=== PATIENT | female | born 1990 | race American Indian/Alaskan Native ===

== ENCOUNTER 2018-03-28 11:28 | Emergency (ER) | payer MEDICAID ==
[2018-03-28 12:44] LABS: Bilirubin,Urine NEG (Negative); Blood,Urine SM (Negative); Color,Urine Yellow (Yellow); Mucus,Urine FEW /HPF; Protein,Urine <15 mg/dL mg/dL (Negative); Urobilinogen,Urine < 2.0 mg/dL (<2.0)
[2018-03-28 12:45] LABS: HCG Qualitative,Urine Negative (Negative)
[2018-03-28] MEDS ORDERED: PEPCID IV ONE (13:29)
[2018-03-28] MEDS ORDERED: MORPHINE IV ONE (13:29)
[2018-03-28] MEDS ORDERED: ZOFRAN IV ONE (13:29)
--- NOTE | 2018-03-28 13:32 | Emergency Department Report ---
Blank Doc - Documentation Documentation: 27-year-old female with no subcutaneous past medical or surgical history presents to the Hospital complaining of epigastric pain followed by nausea and vomiting since last night. Patient states she developed sharp upper abdominal pain after drinking orange juice last night. Pain has continued and she developed nausea and vomiting with by mouth intolerance this a.m. She denies diarrhea, melena, hematochezia, hematemesis, fever, recent travel, or sick contacts. Generalized weakness reported. abd exam: ruq, luq, epigstric tenderness ua/preg reviewed and neg iv meds, labs pending Abd US pending midlevel to follow
[2018-03-28] MEDS ORDERED: D5NS 1,000 ML IV SCH (14:00)
--- NOTE | 2018-03-28 14:14 | Emergency Department Report ---
ED Abdominal Pain HPI - General Chief Complaint: Abdominal Pain Stated Complaint: VOMITING/WEAKNESS Time Seen by Provider: 03/28/18 13:06 Source: patient Mode of arrival: Ambulatory Limitations: No Limitations - History of Present Illness Initial Comments: 27-year-old female with no past medical or surgical history presents to the Hospital complaining of epigastric pain followed by nausea and vomiting since last night. Patient states she developed sharp upper abdominal pain after drinking orange juice last night. Pain has continued and she developed nausea and vomiting with by mouth intolerance this a.m. She denies diarrhea, melena, hematochezia, hematemesis, fever, recent travel, or sick contacts. Generalized weakness reported. Pain is a 10 and worse with palpation and no alleviating factors. MD Complaint: abdominal pain -: Last night Location: LUQ, RUQ, epigastric Radiation: none Migration to: no migration Severity: severe Severity scale (0 -10): 8 Quality: sharp Consistency: intermittent Improves With: nothing Worsens With: vomiting, movement Context: other (unknown) Associated Symptoms: nausea, vomiting. denies: diarrhea, fever, chills, constipation, dysuria, hematemesis, hematochezia, melena, hematuria, anorexia, syncope Treatments Prior to Arrival: other (none) - Related Data LMP Date: 03/14/18 Previous Rx's Medication Instructions Recorded Last Taken Type Dicyclomine [Bentyl] 40 mg PO Q8H 3 Days #9 tablet 03/28/18 Unknown Rx Ondansetron [Zofran Odt] 4 mg PO Q8H PRN #12 tab.rapdis 03/28/18 Unknown Rx Allergies Allergy/AdvReac Type Severity Reaction Status Date / Time No Known Allergies Allergy Unverified 03/28/18 11:40 ED Review of Systems ROS: Stated complaint: VOMITING/WEAKNESS Other details as noted in HPI Constitutional: denies: chills, fever ENT: denies: ear pain, throat pain, congestion Respiratory: denies: cough, shortness of breath, SOB with exertion, SOB at rest , stridor, wheezing Cardiovascular: denies: chest pain, palpitations, edema, syncope Gastrointestinal: abdominal pain, nausea, vomiting. denies: diarrhea, constipation, hematemesis, melena, hematochezia Genitourinary: denies: urgency, dysuria, frequency, hematuria, discharge, abnormal menses Musculoskeletal: denies: back pain, joint swelling, arthralgia, myalgia Skin: denies: rash, lesions Neurological: denies: headache, weakness, paresthesias ED Past Medical Hx - Past Medical History Previous Medical History?: No - Surgical History Past Surgical History?: No - Family History Family history: hypertension - Social History Smoking Status: Never Smoker Substance Use Type: None - Medications Home Medications: Home Medications Medication Instructions Recorded Confirmed Last Taken Type Dicyclomine [Bentyl] 40 mg PO Q8H 3 Days #9 tablet 03/28/18 Unknown Rx Ondansetron [Zofran Odt] 4 mg PO Q8H PRN #12 tab.rapdis 03/28/18 Unknown Rx ED Physical Exam - General Limitations: No Limitations General appearance: alert, in no apparent distress - Head Head exam: Present: atraumatic, normocephalic, normal inspection - Eye Eye exam: Present: normal appearance, PERRL, EOMI Pupils: Present: normal accommodation - ENT ENT exam: Present: normal exam, normal orophraynx, mucous membranes moist, TM's normal bilaterally, normal external ear exam - Neck Neck exam: Present: normal inspection, full ROM. Absent: tenderness, lymphadenopathy - Respiratory Respiratory exam: Present: normal lung sounds bilaterally. Absent: respiratory distress, chest wall tenderness - Cardiovascular Cardiovascular Exam: Present: regular rate, normal rhythm, normal heart sounds. Absent: systolic murmur, diastolic murmur - GI/Abdominal GI/Abdominal exam: Present: soft, tenderness (upper abdominal quadrant including epigastric area), normal bowel sounds. Absent: distended, guarding, rebound, rigid, organomegaly, mass - Extremities Exam Extremities exam: Present: normal inspection, full ROM, normal capillary refill , other (No cce. + 2 pulses in all extremities, no neurovascular compromise). Absent: tenderness, pedal edema, joint swelling, calf tenderness - Back Exam Back exam: Present: normal inspection, full ROM, other (ambulates without any difficulties). Absent: tenderness, CVA tenderness (R), CVA tenderness (L), muscle spasm, paraspinal tenderness, vertebral tenderness, rash noted - Neurological Exam Neurological exam: Present: alert, oriented X3, normal gait - Psychiatric Psychiatric exam: Present: normal affect, normal mood - Skin Skin exam: Present: warm, dry, intact, normal color. Absent: rash ED Course Vital Signs 03/28/18 11:40 Temperature 98.6 F Pulse Rate 92 H Respiratory 18 Rate Blood Pressure 152/91 O2 Sat by Pulse 99 Oximetry - Reevaluation(s) Reevaluation #1: 03/28/18 16:12 Patient given D5 half-normal saline 1 L, Pepcid 20 mg IV, Zofran 4 mg ODT and morphine 4 mg IV for nausea and vomiting and abdominal pain and she was complete relief. Abdomen is nontender to palpate at present and she said she is feeling better. She is given ice water and tolerated well. ED Medical Decision Making - Lab Data Result diagrams: 03/28/18 14:22 03/28/18 14:22 Lab Results 03/28/18 03/28/18 03/28/18 Range/Units 11:51 14:22 14:22 WBC 11.2 H (4.5-11.0) K/mm3 RBC 4.88 (3.65-5.03) M/mm3 Hgb 14.1 (10.1-14.3) gm/dl Hct 41.7 (30.3-42.9) % MCV 86 (79-97) fl MCH 29 (28-32) pg MCHC 34 (30-34) % RDW 13.5 (13.2-15.2) % Plt Count 358 (140-440) K/mm3 Lymph % (Auto) 17.2 (13.4-35.0) % White % (Auto) 4.6 (0.0-7.3) % Eos % (Auto) 0.2 (0.0-4.3) % Baso % (Auto) 0.3 (0.0-1.8) % Lymph # 1.9 (1.2-5.4) K/mm3 White # 0.5 (0.0-0.8) K/mm3 Eos # 0.0 (0.0-0.4) K/mm3 Baso # 0.0 (0.0-0.1) K/mm3 Seg Neutrophils % 77.7 H (40.0-70.0) % Seg Neutrophils # 8.7 H (1.8-7.7) K/mm3 Sodium 140 (137-145) mmol/L Potassium 4.0 (3.6-5.0) mmol/L Chloride 101.2 (98-107) mmol/L Carbon Dioxide 26 (22-30) mmol/L Anion Gap 17 mmol/L BUN 12 (7-17) mg/dL Creatinine 0.8 (0.7-1.2) mg/dL Estimated GFR > 60 ml/min BUN/Creatinine Ratio 15 % Glucose 118 H (65-100) mg/dL Calcium 9.1 (8.4-10.2) mg/dL Total Bilirubin 0.50 (0.1-1.2) mg/dL AST 19 (5-40) units/L ALT 27 (7-56) units/L Alkaline Phosphatase 58 (35-129) units/L Total Protein 6.7 (6.3-8.2) g/dL Albumin 3.9 (3.9-5) g/dL Albumin/Globulin Ratio 1.4 % Lipase 33 (13-60) units/L Urine Color Yellow (Yellow) Urine Turbidity Slightly-cloudy (Clear) Urine pH 5.0 (5.0-7.0) Ur Specific [place] 1.019 (1.003-1.030) Urine Protein <15 mg/dl (Negative) mg/dL Urine Glucose (UA) Neg (Negative) mg/dL Urine Ketones Neg (Negative) mg/dL Urine Blood Sm (Negative) Urine Nitrite Neg (Negative) Urine Bilirubin Neg (Negative) Urine Urobilinogen < 2.0 (<2.0) mg/dL Ur Leukocyte Esterase Neg (Negative) Urine WBC (Auto) 2.0 (0.0-6.0) /HPF Urine RBC (Auto) 2.0 (0.0-6.0) /HPF U Epithel Cells (Auto) 5.0 (0-13.0) /HPF Urine Mucus Few /HPF Urine HCG, Qual Negative (Negative) - Radiology Data Radiology results: report reviewed Abdominal ultrasound complete dictated by radiologist report reviewed by myself. See report below Patient: EMMANUEL FISHER MR#: [id number] : 1990 Acct:[id number] Age/Sex: 27 / F ADM Date: 03/28/18 Loc: ED Attending Dr: Ordering Physician: DAVID POSEY MD Date of Service: 03/28/18 Procedure(s): US abdomen complete Accession Number(s): [id number] cc: DAVID POSEY MD FINAL REPORT EXAM: US ABDOMEN COMPLETE HISTORY: upper abd pain, n,v TECHNIQUE: Grayscale and color doppler ultrasound imaging of the abdomen was performed. PRIORS: None. FINDINGS: Liver: The liver is normal in echogenicity. No focal hepatic lesions or intrahepatic biliary ductal dilation. Gallbladder/Biliary system: No cholelithiasis, gallbladder wall thickening or pericholecystic fluid. The common bile duct measures 4.3 millimeters. Spleen: The spleen is normal in echogenicity. The spleen measures 8.3 centimeters. Kidneys: The kidneys are normal in echogenicity without hydronephrosis, mass, cyst or calcification. The right kidney measures 11.5 x 5.5 x 3.9 centimeters. The left kidney measures 11.1 x 4.8 x 6.8 centimeters. No renal cortical thinning. Pancreas: The visualized portions of the pancreas demonstrate no focal lesion. Aorta/IVC: The visualized portions of the abdominal aorta and IVC are normal in caliber. Free fluid: None. IMPRESSION: Normal abdominal ultrasound. Transcribed By: MG Dictated By: JULIETTE EDEN MD Electronically Authenticated By: JULIETTE EDEN MD Signed Date/Time: 03/28/181603 DD/ 03 TD/TT: 03/28/181603 - Medical Decision Making This is a 27-year-old female here reports that she has been having abdominal pain nausea and vomiting since last night. She is here to be evaluated. Patient was screened by Dr. Posey and orders . I examined the patient and physical findings normal except she has tenderness to palpate to upper abdominal quadrants including left upper, right upper and epigastric area. She had no vomiting in emergency room but she did complain of nausea. Patient with nonacute abdomen. CBC and CMP is stable, lipase stable and present negative. Urinalysis normal findings. Patient had ultrasound complete abdomen and with normal findings this is dictated by radiologist report reviewed by myself. I discussed laboratory and ultrasound report findings with patient and she voiced understanding. Patient was given D5 normal saline 1 L emergency room, Zofran 4 mg IV for nausea and vomiting which has been relieved, morphine 4 mg IV for abdominal pain which has been relieved and abdominal assessment with non- tenderness to palpate. She was given Pepcid 20 mg IV with good results. Patient able to tolerates by mouth ice water in emergency room without any difficulties. Patient discharged home in stable condition, vital signs stable she is afebrile and she is nontoxic in appearance and she has no nausea and no pain at present. 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 Discharged home in stable condition with a prescription for Bentyl, Pepcid and Zofran Critical care attestation.: If time is entered above; I have spent that time in minutes in the direct care of this critically ill patient, excluding procedure time. ED Disposition Clinical Impression: Nausea and vomiting Qualifiers: Vomiting type: unspecified Vomiting Intractability: non-intractable Qualified Code(s): R11.2 - Nausea with vomiting, unspecified Abdominal pain Qualifiers: Abdominal location: upper abdomen, unspecified Qualified Code(s): R10.10 - Upper abdominal pain, unspecified Disposition: DC-01 TO HOME OR SELFCARE Is pt being admited?: No Does the pt Need Aspirin: No Condition: Stable Instructions: Abdominal Pain (ED), Acute Nausea and Vomiting (ED) Additional Instructions: Please follow up with primary care physician as discussed. See gastroenterology referral. Take Bentyl and Zofran. Follow dilated such as bananas, rice, applesauce and toast for the next 72 hours to rest your stomach lining. Weight drinking caffeinated and carbonated beverages. Avoid spicy food Increase fluid intake. Prescriptions: Dicyclomine [Bentyl] 40 mg PO Q8H 3 Days #9 tablet Ondansetron [Zofran Odt] 4 mg PO Q8H PRN #12 tab.rapdis PRN Reason: Nausea And Vomiting Referrals: [facility] [Outside] - 03/30/18 [facility] [Provider Group] - 03/30/18 Forms: Work/School Release Form(ED)
[2018-03-28 14:38] LABS: Basophils % (Auto) 0.3 % (0.0-1.8); Eosinophils % (Auto) 0.2 % (0.0-4.3); Hematocrit 41.7 % (30.3-42.9); Hemoglobin 14.1 gm/dl (10.1-14.3); Lymphocytes # (Auto) 1.9 K/mm3 (1.2-5.4); Lymphocytes % (Auto) 17.2 % (13.4-35.0); Mean Corpuscular HGB Conc 34 % (30-34); Mean Corpuscular Hemoglobin 29 pg (28-32); Mean Corpuscular Volume 86 fl (79-97); Monocytes # (Auto) 0.5 K/mm3 (0.0-0.8); Monocytes % (Auto) 4.6 % (0.0-7.3); Platelet Count 358 K/mm3 (140-440); Red Blood Count 4.88 M/mm3 (3.65-5.03); Red Cell Distribution Width 13.5 % (13.2-15.2)
[2018-03-28 14:56] LABS: Alanine Aminotransferase 27 units/L (7-56); Albumin 3.9 g/dL (3.9-5); BUN/Creatinine Ratio 15; Blood Urea Nitrogen 12 mg/dL (7-17); Calcium 9.1 mg/dL (8.4-10.2); Hemolysis Index 6; Lipase 33 units/L (13-60)
--- NOTE | 2018-03-28 16:04 | Ultrasound Report ---
FINAL REPORT EXAM: US ABDOMEN COMPLETE HISTORY: upper abd pain, n,v TECHNIQUE: Grayscale and color doppler ultrasound imaging of the abdomen was performed. PRIORS: None. FINDINGS: Liver: The liver is normal in echogenicity. No focal hepatic lesions or intrahepatic biliary ductal dilation. Gallbladder/Biliary system: No cholelithiasis, gallbladder wall thickening or pericholecystic fluid. The common bile duct measures 4.3 millimeters. Spleen: The spleen is normal in echogenicity. The spleen measures 8.3 centimeters. Kidneys: The kidneys are normal in echogenicity without hydronephrosis, mass, cyst or calcification. The right kidney measures 11.5 x 5.5 x 3.9 centimeters. The left kidney measures 11.1 x 4.8 x 6.8 centimeters. No renal cortical thinning. Pancreas: The visualized portions of the pancreas demonstrate no focal lesion. Aorta/IVC: The visualized portions of the abdominal aorta and IVC are normal in caliber. Free fluid: None. IMPRESSION: Normal abdominal ultrasound.
[2018-03-28 17:02] VITALS: BP 119/60
== END 2018-03-28 17:01 | disposition home or self-care (01) ==
LOC: ED 11:28
DX: R11.2 Nausea with vomiting, unspecified (principal); R10.10 Upper abdominal pain, unspecified
CPT/HCPCS: 36415; 76700; 80053; 81001; 81025; 83690; 85025; 96361; 96374; 96375; 99284; J2270; J2405; J7042

== ENCOUNTER 2018-04-04 02:41 | Emergency (ER) | payer MEDICARE ==
[2018-04-04] MEDS ORDERED: NACL 0.9% 1000 ML 1,000 ML IV ONE ×2 (03:51→10:50)
[2018-04-04] MEDS ORDERED: ZOFRAN IV ONE ×3 (03:53→13:33)
[2018-04-04] MEDS ORDERED: ZOFRAN ONE (04:05)
[2018-04-04 04:10] LABS: Basophils % (Auto) 0.1 % (0.0-1.8); Eosinophils # (Auto) 0.1 K/mm3 (0.0-0.4); Eosinophils % (Auto) 1.4 % (0.0-4.3); Hematocrit 37.8 % (30.3-42.9); Hemoglobin 12.9 gm/dl (10.1-14.3); Lymphocytes # (Auto) 1.7 K/mm3 (1.2-5.4); Lymphocytes % (Auto) 21.2 % (13.4-35.0); Mean Corpuscular HGB Conc 34 % (30-34); Mean Corpuscular Hemoglobin 29 pg (28-32); Mean Corpuscular Volume 86 fl (79-97); Monocytes # (Auto) 0.6 K/mm3 (0.0-0.8); Monocytes % (Auto) 7.5 % (0.0-7.3); Platelet Count 284 K/mm3 (140-440); Red Blood Count 4.41 M/mm3 (3.65-5.03); Red Cell Distribution Width 13.7 % (13.2-15.2)
[2018-04-04] MEDS ORDERED: NACL 0.9% 1000 ML 1,000 ML ONE (04:25)
[2018-04-04 08:10] LABS: Alanine Aminotransferase 35 units/L (7-56); Albumin 3.6 g/dL (3.9-5); BUN/Creatinine Ratio 16; Blood Urea Nitrogen 13 mg/dL (7-17); Calcium 8.6 mg/dL (8.4-10.2); Hemolysis Index 19; Lipase 31 units/L (13-60)
[2018-04-04 08:12] LABS: Bilirubin,Urine NEG (Negative); Blood,Urine LG (Negative); Color,Urine Yellow (Yellow); Protein,Urine <15 mg/dL mg/dL (Negative); Urobilinogen,Urine < 2.0 mg/dL (<2.0)
[2018-04-04] MEDS ORDERED: MORPHINE IV ONE (10:49)
--- NOTE | 2018-04-04 11:12 | Emergency Department Report ---
ED General Adult HPI - General Chief complaint: Abdominal Pain Stated complaint: ABD PAIN Time Seen by Provider: 04/04/18 10:44 Source: patient Mode of arrival: Ambulatory Limitations: No Limitations - History of Present Illness Initial comments: Patient complains of nausea, vomiting, diarrhea for the last 24 hours. Patient states that she's had multiple episodes of vomiting which is causing her to have abdominal pain. Patient denies any sick contacts. Has no other symptoms. -: Sudden Radiation: non-radiation Severity scale (0 -10): 3 Quality: dull Consistency: constant Improves with: none Worsens with: eating Associated Symptoms: denies other symptoms Treatments Prior to Arrival: none - Related Data Previous Rx's Medication Instructions Recorded Last Taken Type Dicyclomine [Bentyl] 40 mg PO Q8H 3 Days #9 tablet 03/28/18 Unknown Rx Ondansetron [Zofran Odt] 4 mg PO Q8H PRN #12 tab.rapdis 03/28/18 Unknown Rx Ondansetron [Zofran Odt] 4 mg PO Q6HR PRN #12 tab.rapdis 04/04/18 Unknown Rx Promethazine [Phenergan TAB] 25 mg PO Q6HR PRN #20 tab 04/04/18 Unknown Rx Allergies Allergy/AdvReac Type Severity Reaction Status Date / Time No Known Allergies Allergy Unverified 03/28/18 11:40 ED Review of Systems ROS: Stated complaint: ABD PAIN Other details as noted in HPI Comment: All other systems reviewed and negative Constitutional: denies: chills, fever Eyes: denies: eye pain, eye discharge, vision change ENT: denies: ear pain, throat pain Respiratory: denies: cough, shortness of breath, wheezing Cardiovascular: denies: chest pain, palpitations Endocrine: no symptoms reported Gastrointestinal: denies: abdominal pain, nausea, diarrhea Genitourinary: denies: urgency, dysuria, discharge Musculoskeletal: denies: back pain, joint swelling, arthralgia Skin: denies: rash, lesions Neurological: denies: headache, weakness, paresthesias Psychiatric: denies: anxiety, depression Hematological/Lymphatic: denies: easy bleeding, easy bruising ED Past Medical Hx - Past Medical History Previous Medical History?: No - Surgical History Past Surgical History?: No - Social History Smoking Status: Never Smoker Substance Use Type: None - Medications Home Medications: Home Medications Medication Instructions Recorded Confirmed Last Taken Type Dicyclomine [Bentyl] 40 mg PO Q8H 3 Days #9 tablet 03/28/18 Unknown Rx Ondansetron [Zofran Odt] 4 mg PO Q8H PRN #12 tab.rapdis 03/28/18 Unknown Rx Ondansetron [Zofran Odt] 4 mg PO Q6HR PRN #12 tab.rapdis 04/04/18 Unknown Rx Promethazine [Phenergan TAB] 25 mg PO Q6HR PRN #20 tab 04/04/18 Unknown Rx ED Physical Exam - General Limitations: No Limitations General appearance: alert, in no apparent distress - Head Head exam: Present: atraumatic, normocephalic - Eye Eye exam: Present: normal appearance - ENT ENT exam: Present: other (dry mucous membranes) - Neck Neck exam: Present: normal inspection - Respiratory Respiratory exam: Present: normal lung sounds bilaterally. Absent: respiratory distress, wheezes, rales, rhonchi - Cardiovascular Cardiovascular Exam: Present: regular rate, normal rhythm. Absent: systolic murmur, diastolic murmur, rubs, gallop - GI/Abdominal GI/Abdominal exam: Present: soft, normal bowel sounds. Absent: distended, tenderness - Extremities Exam Extremities exam: Present: normal inspection - Back Exam Back exam: Present: normal inspection - Neurological Exam Neurological exam: Present: alert, oriented X3, CN II-XII intact. Absent: motor sensory deficit - Psychiatric Psychiatric exam: Present: normal affect, normal mood - Skin Skin exam: Present: warm, dry, intact, normal color. Absent: rash ED Course Vital Signs 04/04/18 04/04/18 02:45 07:45 Temperature 98.1 F 99.0 F Pulse Rate 62 72 Respiratory 16 17 Rate Blood Pressure 153/84 Blood Pressure 157/83 [Right] O2 Sat by Pulse 99 100 Oximetry ED Medical Decision Making - Lab Data Result diagrams: 04/04/18 03:53 04/04/18 03:53 - Medical Decision Making discussed results with patient Critical care attestation.: If time is entered above; I have spent that time in minutes in the direct care of this critically ill patient, excluding procedure time. ED Disposition Clinical Impression: Nausea & vomiting, Diarrhea Disposition: DC-01 TO HOME OR SELFCARE Is pt being admited?: No Does the pt Need Aspirin: No Condition: Stable Instructions: Acute Nausea and Vomiting (ED), Acute Diarrhea (ED) Additional Instructions: return if worse Prescriptions: Ondansetron [Zofran Odt] 4 mg PO Q6HR PRN #12 tab.rapdis PRN Reason: Nausea Promethazine [Phenergan TAB] 25 mg PO Q6HR PRN #20 tab PRN Reason: Nausea Referrals: PRIMARY CARE, [Primary Care Provider] - 3-5 Days Time of Disposition: 13:37
--- NOTE | 2018-04-04 12:42 | XRay Report ---
ABDOMINAL SERIES: History: Abdominal pain. Erect chest film shows no acute or significant changes involving the heart or lung bazan. There is no evidence of free air beneath the diaphragms. The gas pattern within the abdomen is unremarkable. There is no evidence of bowel dilatation, significant air-fluid levels, or masses. Organ shadows are unremarkable. IMPRESSION: Abdominal series within normal limits.
[2018-04-04] MEDS ORDERED: REGLAN IV ONE (13:33)
[2018-04-04 14:11] VITALS: BP 140/86
== END 2018-04-04 14:31 | disposition home or self-care (01) ==
LOC: ED 02:41
DX: R11.2 Nausea with vomiting, unspecified (principal); R19.7 Diarrhea, unspecified; Z79.899 Other long term (current) drug therapy
CPT/HCPCS: 36415; 74022; 80053; 81001; 82962; 83690; 84702; 85025; 96361; 96374; 96375; 96376; 99284; J2270; J2405; J2765; J7030

== ENCOUNTER 2018-10-17 10:06 | Emergency (ER) | payer MEDICARE ==
[2018-10-17 11:15] LABS: Bacteria,Urine 1+ /HPF (Negative); Bilirubin,Urine NEG (Negative); Blood,Urine NEG (Negative); Color,Urine Yellow (Yellow); Protein,Urine <15 mg/dL mg/dL (Negative); Urobilinogen,Urine < 2.0 mg/dL (<2.0); WBC,Urine < 1.0 /HPF (0.0-6.0)
[2018-10-17] MEDS ORDERED: ZOFRAN IV ONE (11:15)
[2018-10-17] MEDS ORDERED: PEPCID IV ONE (11:15)
[2018-10-17] MEDS ORDERED: NACL 0.9% 1000 ML 1,000 ML IV ONE (11:15)
[2018-10-17 11:17] LABS: HCG Qualitative,Urine Negative (Negative)
[2018-10-17 11:37] LABS: Basophils % (Auto) 0.2 % (0.0-1.8); Eosinophils # (Auto) 0.2 K/mm3 (0.0-0.4); Eosinophils % (Auto) 2.7 % (0.0-4.3); Hematocrit 38.6 % (30.3-42.9); Hemoglobin 12.7 gm/dl (10.1-14.3); Lymphocytes % (Auto) 17.8 % (13.4-35.0); Mean Corpuscular HGB Conc 33 % (30-34); Mean Corpuscular Volume 87 fl (79-97); Monocytes # (Auto) 0.7 K/mm3 (0.0-0.8); Monocytes % (Auto) 12.1 % (0.0-7.3); Platelet Count 271 K/mm3 (140-440); Red Blood Count 4.44 M/mm3 (3.65-5.03); Red Cell Distribution Width 13.8 % (13.2-15.2)
[2018-10-17 11:59] LABS: Alanine Aminotransferase 73 units/L (7-56); Albumin 3.5 g/dL (3.9-5); BUN/Creatinine Ratio 11; Blood Urea Nitrogen 10 mg/dL (7-17); Calcium 8.5 mg/dL (8.4-10.2); Hemolysis Index 8
--- NOTE | 2018-10-17 12:01 | XRay Report ---
ABDOMINAL SERIES: History: Cough, nausea, vomiting, diarrhea. Erect chest film shows no acute or significant changes involving the heart or lung bazan. There is no evidence of free air beneath the diaphragms. The gas pattern within the abdomen is unremarkable. There is no evidence of bowel dilatation, significant air-fluid levels, or masses. Organ shadows are unremarkable. IMPRESSION: Abdominal series within normal limits.
[2018-10-17] MEDS ORDERED: TORADOL IV ONE (13:05)
--- NOTE | 2018-10-17 13:43 | Emergency Department Report ---
ED General Adult HPI - General Chief complaint: Abdominal Pain Stated complaint: ABD PAIN Time Seen by Provider: 10/17/18 11:06 Source: patient Mode of arrival: Ambulatory Limitations: No Limitations - History of Present Illness Initial comments: Patient is a 28-year-old female who is presenting with some diffuse abdominal discomfort all the vomiting diarrhea and cough. Patient also states she has mild headache as well. Patient body aches. Patient states cough is nonproductive. Patient symptoms have been present for approximately 5 days. Patient states that she has not been able to tolerate by mouth in this timeframe Severity scale (0 -10): 7 Consistency: constant - Related Data Previous Rx's Medication Instructions Recorded Last Taken Type Ondansetron [Zofran Odt] 4 mg PO Q8H PRN #12 tab.rapdis 03/28/18 Unknown Rx Ondansetron [Zofran Odt] 4 mg PO Q6HR PRN #12 tab.rapdis 04/04/18 Unknown Rx Dicyclomine [Bentyl] 40 mg PO Q8H 3 Days #9 tablet 05/31/18 Unknown Rx Promethazine [Phenergan TAB] 25 mg PO Q6HR PRN #20 tab 05/31/18 Unknown Rx Benzonatate [Tessalon Perles] 100 mg PO Q8HR #10 capsule 10/17/18 Unknown Rx HYDROcodone/APAP 5-325 [[place] 1 each PO Q4HR PRN #12 tablet 10/17/18 Unknown Rx 5/325] Ibuprofen [Motrin] 600 mg PO Q8H PRN #20 tablet 10/17/18 Unknown Rx Ondansetron [Zofran Odt] 4 mg PO Q8HR PRN #10 tab.rapdis 10/17/18 Unknown Rx Allergies Allergy/AdvReac Type Severity Reaction Status Date / Time No Known Allergies Allergy Verified 10/17/18 10:10 ED Review of Systems ROS: Stated complaint: ABD PAIN Other details as noted in HPI Comment: All other systems reviewed and negative ED Past Medical Hx - Past Medical History Previous Medical History?: No - Surgical History Past Surgical History?: No - Social History Smoking Status: Never Smoker Substance Use Type: None - Medications Home Medications: Home Medications Medication Instructions Recorded Confirmed Last Taken Type Ondansetron [Zofran Odt] 4 mg PO Q8H PRN #12 tab.rapdis 03/28/18 Unknown Rx Ondansetron [Zofran Odt] 4 mg PO Q6HR PRN #12 tab.rapdis 04/04/18 Unknown Rx Dicyclomine [Bentyl] 40 mg PO Q8H 3 Days #9 tablet 05/31/18 Unknown Rx Promethazine [Phenergan TAB] 25 mg PO Q6HR PRN #20 tab 05/31/18 Unknown Rx Benzonatate [Tessalon Perles] 100 mg PO Q8HR #10 capsule 10/17/18 Unknown Rx HYDROcodone/APAP 5-325 [[place] 1 each PO Q4HR PRN #12 tablet 10/17/18 Unknown Rx 5/325] Ibuprofen [Motrin] 600 mg PO Q8H PRN #20 tablet 10/17/18 Unknown Rx Ondansetron [Zofran Odt] 4 mg PO Q8HR PRN #10 tab.rapdis 10/17/18 Unknown Rx ED Physical Exam - General Limitations: No Limitations General appearance: alert, in no apparent distress - Head Head exam: Present: atraumatic, normocephalic - Eye Eye exam: Present: normal appearance - ENT ENT exam: Present: mucous membranes moist - Neck Neck exam: Present: normal inspection - Respiratory Respiratory exam: Present: normal lung sounds bilaterally. Absent: respiratory distress, wheezes, rales, rhonchi - Cardiovascular Cardiovascular Exam: Present: regular rate, normal rhythm. Absent: systolic murmur, diastolic murmur, rubs, gallop - GI/Abdominal GI/Abdominal exam: Present: soft, normal bowel sounds. Absent: distended, tenderness, guarding, rebound - Extremities Exam Extremities exam: Present: normal inspection - Back Exam Back exam: Present: normal inspection - Neurological Exam Neurological exam: Present: alert, oriented X3 - Psychiatric Psychiatric exam: Present: normal affect, normal mood - Skin Skin exam: Present: warm, dry, intact, normal color. Absent: rash ED Course Vital Signs 10/17/18 10/17/18 10:14 10:41 Temperature 98.5 F Pulse Rate 82 Respiratory 16 17 Rate Blood Pressure 129/93 O2 Sat by Pulse 97 Oximetry ED Medical Decision Making - Lab Data Result diagrams: 10/17/18 11:28 10/17/18 11:28 Lab Results 10/17/18 10/17/18 10/17/18 Range/Units 10:41 11:28 11:28 WBC 5.8 (4.5-11.0) K/mm3 RBC 4.44 (3.65-5.03) M/mm3 Hgb 12.7 (10.1-14.3) gm/dl Hct 38.6 (30.3-42.9) % MCV 87 (79-97) fl MCH 29 (28-32) pg MCHC 33 (30-34) % RDW 13.8 (13.2-15.2) % Plt Count 271 (140-440) K/mm3 Lymph % (Auto) 17.8 (13.4-35.0) % [place] % (Auto) 12.1 H (0.0-7.3) % Eos % (Auto) 2.7 (0.0-4.3) % Baso % (Auto) 0.2 (0.0-1.8) % Lymph # 1.0 L (1.2-5.4) K/mm3 [place] # 0.7 (0.0-0.8) K/mm3 Eos # 0.2 (0.0-0.4) K/mm3 Baso # 0.0 (0.0-0.1) K/mm3 Seg Neutrophils % 67.2 (40.0-70.0) % Seg Neutrophils # 3.9 (1.8-7.7) K/mm3 Sodium 143 (137-145) mmol/L Potassium 3.7 (3.6-5.0) mmol/L Chloride 102.0 (98-107) mmol/L Carbon Dioxide 27 (22-30) mmol/L Anion Gap 18 mmol/L BUN 10 (7-17) mg/dL Creatinine 0.9 (0.7-1.2) mg/dL Estimated GFR > 60 ml/min BUN/Creatinine Ratio 11 % Glucose 108 H (65-100) mg/dL Calcium 8.5 (8.4-10.2) mg/dL Total Bilirubin 0.60 (0.1-1.2) mg/dL AST 46 H (5-40) units/L ALT 73 H (7-56) units/L Alkaline Phosphatase 65 (35-129) units/L Total Protein 6.2 L (6.3-8.2) g/dL Albumin 3.5 L (3.9-5) g/dL Albumin/Globulin Ratio 1.3 % Urine Color Yellow (Yellow) Urine Turbidity Clear (Clear) Urine pH 6.0 (5.0-7.0) Ur Specific [place] 1.011 (1.003-1.030) Urine Protein <15 mg/dl (Negative) mg/dL Urine Glucose (UA) Neg (Negative) mg/dL Urine Ketones Neg (Negative) mg/dL Urine Blood Neg (Negative) Urine Nitrite Neg (Negative) Urine Bilirubin Neg (Negative) Urine Urobilinogen < 2.0 (<2.0) mg/dL Ur Leukocyte Esterase Neg (Negative) Urine WBC (Auto) < 1.0 (0.0-6.0) /HPF Urine RBC (Auto) 1.0 (0.0-6.0) /HPF U Epithel Cells (Auto) 2.0 (0-13.0) /HPF Urine Bacteria (Auto) 1+ (Negative) /HPF Urine HCG, Qual Negative (Negative) - Radiology Data Abdominal x-ray with chest shows no acute process - Medical Decision Making Patient states she has not been able to tolerate by mouth and abruptly 5 days. Patient was given IV hydration. Nasal given for nausea. Patient left her studies are essentially within normal limits. Patient likely with viral syndrome possibly influenza the patient be discharged home with medications for symptomatically relief. Critical care attestation.: If time is entered above; I have spent that time in minutes in the direct care of this critically ill patient, excluding procedure time. ED Disposition Clinical Impression: Viral syndrome Disposition: DC-01 TO HOME OR SELFCARE Is pt being admited?: No Does the pt Need Aspirin: No Condition: Stable Instructions: Viral Syndrome (ED) Referrals: PAUL LARKIN MD [Primary Care Provider] - 3-5 Days Time of Disposition: 13:42
[2018-10-17 14:36] VITALS: BP 119/71
== END 2018-10-17 14:35 | disposition home or self-care (01) ==
LOC: ED 10:06
DX: B34.9 Viral infection, unspecified (principal)
CPT/HCPCS: 36415; 74022; 80053; 81001; 81025; 85025; 96361; 96374; 96375; 99284; J1885; J2405; J7030

== ENCOUNTER 2019-04-08 12:17 | Emergency (ER) | payer MEDICARE ==
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
[2019-04-08 12:34] VITALS: BP 134/73
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
== END 2019-04-08 14:35 | disposition left against medical advice (07) ==
LOC: ED 12:17
DX: M79.10 Myalgia, unspecified site (principal); Z53.21 Procedure and treatment not carried out due to patient leaving prior to being seen by health care provider

== ENCOUNTER 2019-08-01 10:07 | Emergency (ER) | payer MEDICARE ==
[2019-08-01 10:12] VITALS: BP 121/71
--- NOTE | 2019-08-01 12:56 | Emergency Department Report ---
Minor Respiratory - HPI Chief Complaint: Upper Respiratory Infection Stated Complaint: FLU LIKE SYMPTOMS Time Seen by Provider: 08/01/19 12:49 Duration: 2 Days Pain Location: Throat, Nose, Ear Severity: moderate Minor Respiratory: Yes Rhinorrhea, Yes Sore Throat, Yes Able to Tolerate Fluids, Yes Ear Pain, Yes Cough, Yes Sick Contacts, Yes Fever, No Hemoptysis, No Chest Pain, No Shortness of Breath Other History: Mrs. Fish is a 29-year-old female without significant past medical history who presents with sore throat fever bilateral ear pain and cough. Multiple sick contacts at home. Tried NyQuil without relief. ED Review of Systems ROS: Stated complaint: FLU LIKE SYMPTOMS Other details as noted in HPI Constitutional: fever, malaise ENT: ear pain, throat pain, congestion Respiratory: cough Gastrointestinal: denies: abdominal pain, nausea, vomiting ED Past Medical Hx - Past Medical History Previous Medical History?: No - Surgical History Past Surgical History?: No - Social History Smoking Status: Never Smoker Substance Use Type: None - Medications Home Medications: Home Medications Medication Instructions Recorded Confirmed Last Taken Type Ondansetron [Zofran Odt] 4 mg PO Q8H PRN #12 tab.rapdis 03/28/18 Unknown Rx Ondansetron [Zofran Odt] 4 mg PO Q6HR PRN #12 tab.rapdis 04/04/18 Unknown Rx Dicyclomine [Bentyl] 40 mg PO Q8H 3 Days #9 tablet 05/31/18 Unknown Rx Promethazine [Phenergan] 25 mg PO Q6HR PRN #20 tab 05/31/18 Unknown Rx Benzonatate [Tessalon Perles] 100 mg PO Q8HR #10 capsule 10/17/18 Unknown Rx HYDROcodone/APAP 5-325 [[place] 1 each PO Q4HR PRN #12 tablet 10/17/18 Unknown Rx 5/325] Ibuprofen [Motrin] 600 mg PO Q8H PRN #20 tablet 10/17/18 Unknown Rx Ondansetron [Zofran Odt] 4 mg PO Q8HR PRN #10 tab.rapdis 10/17/18 Unknown Rx Amoxicillin/Potassium Clav 1 each PO BID 10 Days #20 tablet 08/01/19 Unknown Rx [Augmentin 875-125 Tablet] Minor Respiratory Exam - Exam General: Vital signs noted. No distress. Alert and acting appropriately. HEENT: Yes Moist Mucous Membranes, Yes Rhinorrhea, No Pharyngeal Erythema, No P haryngeal Exudates, No Conjuctival Injection Ear: Both TM Bulge, Both TM Erythema, Neither EAC Pain, Neither EAC Discharge Neck: Yes Supple Lungs: Yes Good Air Exchange, No Wheezes, No [place], No Stridor, No Cough, No Labored Respirations, No Retractions, No Use of Accessory Muscles Heart: Yes Regular, No Murmur Skin: No Rash, No Edema Neurologic: Alert and oriented, no deficits. Musculoskeletal: Unremarkable. ED Course Vital Signs 08/01/19 10:09 Temperature 98.7 F Pulse Rate 75 Respiratory 18 Rate Blood Pressure 121/71 O2 Sat by Pulse 95 Oximetry ED Medical Decision Making - Medical Decision Making Mrs. Fish has bilateral otitis media and URI. Rx: Augmentin Critical care attestation.: If time is entered above; I have spent that time in minutes in the direct care of this critically ill patient, excluding procedure time. ED Disposition Clinical Impression: Bilateral otitis media, Upper respiratory infection Disposition: TO HOME OR SELFCARE Is pt being admited?: No Does the pt Need Aspirin: No Condition: Stable Instructions: Otitis Media (ED), Upper Respiratory Infection (ED) Prescriptions: Amoxicillin/Potassium Clav [Augmentin 875-125 Tablet] 1 each PO BID 10 Days #20 tablet Referrals: PAUL LARKIN MD [Staff Physician] - 3-5 Days [facility] [Outside] - 3-5 Days
== END 2019-08-01 13:05 | disposition home or self-care (01) ==
LOC: ED 10:07
DX: J06.9 Acute upper respiratory infection, unspecified (principal); H66.93 Otitis media, unspecified, bilateral; Z79.899 Other long term (current) drug therapy

== ENCOUNTER 2020-12-06 13:27 | Emergency (ER) | payer MEDICARE ==
[2020-12-06] MEDS ORDERED: ONDANSETRON 4 MG/2 ML INJ IV ONE (19:39)
[2020-12-06] MEDS ORDERED: ACETAMINOPHEN W/CODEINE 300-30 MG TAB PO ONE (19:39)
[2020-12-06] MEDS ORDERED: SODIUM CHLORIDE 0.9% 1000 ML 1,000 ML IV ONE (19:39)
[2020-12-06 20:09] LABS: Bilirubin,Urine NEG (Negative); Blood,Urine NEG (Negative); Color,Urine Yellow (Yellow); Mucus,Urine FEW /HPF; Protein,Urine <15 mg/dL mg/dL (Negative)
--- NOTE | 2020-12-06 20:13 | Emergency Department Report ---
<CUAUHTEMOC ORTIZ - Last Filed: 12/07/20 05:16> ED N/V/D HPI - General Chief complaint: Nausea/Vomiting/Diarrhea Stated complaint: NAUSEA/VOMITING Time Seen by Provider: 12/06/20 19:18 Source: patient Mode of arrival: Ambulatory Limitations: No Limitations - History of Present Illness Initial comments: Patient is a 30-year-old female presents emergency room complaints of nausea, vomiting, diarrhea that began 2 to 3 days ago. She states that she is unable to tolerate p.o. intake. She has associated chills. She denies any abdominal pain, cough, shortness of breath, hematochezia, melena, hematemesis, pus in the stool, back pain, urinary symptoms, abnormal vaginal discharge. She denies any sick contacts, recent travel, eating bad or spoiled foods, water from a different source, recent camping, recent antibiotics. No past medical history. No allergies to medications. Denies any past abdominal surgical history. Last menstrual cycle 11/29/2020. - Related Data Previous Rx's Medication Instructions Recorded Last Taken Type Ondansetron [Zofran Odt] 4 mg PO Q8H PRN #12 tab.rapdis 03/28/18 Unknown Rx Ondansetron [Zofran Odt] 4 mg PO Q6HR PRN #12 tab.rapdis 04/04/18 Unknown Rx Dicyclomine [Bentyl] 40 mg PO Q8H 3 Days #9 tablet 05/31/18 Unknown Rx Promethazine [Phenergan] 25 mg PO Q6HR PRN #20 tab 05/31/18 Unknown Rx Benzonatate [Tessalon Perles] 100 mg PO Q8HR #10 capsule 10/17/18 Unknown Rx HYDROcodone/APAP 5-325 [[place] 1 each PO Q4HR PRN #12 tablet 10/17/18 Unknown Rx 5/325] Ibuprofen [Motrin] 600 mg PO Q8H PRN #20 tablet 10/17/18 Unknown Rx Ondansetron [Zofran Odt] 4 mg PO Q8HR PRN #10 tab.rapdis 10/17/18 Unknown Rx Amoxicillin/Potassium Clav 1 each PO BID 10 Days #20 tablet 08/01/19 Unknown Rx [Augmentin 875-125 Tablet] Hyoscyamine Subl [Levsin Sl 0.125 0.125 mg SL Q6HR PRN #7 tab 12/06/20 Unknown Rx TAB] Ondansetron [Zofran Odt] 4 mg PO Q8HR PRN #7 tab.rapdis 12/06/20 Unknown Rx Allergies Allergy/AdvReac Type Severity Reaction Status Date / Time No Known Allergies Allergy Verified 10/17/18 10:10 ED Review of Systems Comment: All other systems reviewed and negative ED Past Medical Hx - Past Medical History Previous Medical History?: No - Surgical History Past Surgical History?: No - Social History Smoking Status: Never Smoker Substance Use Type: None - Medications Home Medications: Home Medications Medication Instructions Recorded Confirmed Last Taken Type Ondansetron [Zofran Odt] 4 mg PO Q8H PRN #12 tab.rapdis 03/28/18 Unknown Rx Ondansetron [Zofran Odt] 4 mg PO Q6HR PRN #12 tab.rapdis 04/04/18 Unknown Rx Dicyclomine [Bentyl] 40 mg PO Q8H 3 Days #9 tablet 05/31/18 Unknown Rx Promethazine [Phenergan] 25 mg PO Q6HR PRN #20 tab 05/31/18 Unknown Rx Benzonatate [Tessalon Perles] 100 mg PO Q8HR #10 capsule 10/17/18 Unknown Rx HYDROcodone/APAP 5-325 [[place] 1 each PO Q4HR PRN #12 tablet 10/17/18 Unknown Rx 5/325] Ibuprofen [Motrin] 600 mg PO Q8H PRN #20 tablet 10/17/18 Unknown Rx Ondansetron [Zofran Odt] 4 mg PO Q8HR PRN #10 tab.rapdis 10/17/18 Unknown Rx Amoxicillin/Potassium Clav 1 each PO BID 10 Days #20 tablet 08/01/19 Unknown Rx [Augmentin 875-125 Tablet] Hyoscyamine Subl [Levsin Sl 0.125 0.125 mg SL Q6HR PRN #7 tab 12/06/20 Unknown Rx TAB] Ondansetron [Zofran Odt] 4 mg PO Q8HR PRN #7 tab.rapdis 12/06/20 Unknown Rx ED Physical Exam - General Limitations: No Limitations General appearance: alert, in no apparent distress - Head Head exam: Present: atraumatic, normocephalic - Eye Eye exam: Present: normal appearance - ENT ENT exam: Present: mucous membranes dry - Respiratory Respiratory exam: Present: normal lung sounds bilaterally. Absent: respiratory distress, wheezes, rales, rhonchi, stridor, chest wall tenderness, accessory muscle use, decreased breath sounds, prolonged expiratory - Cardiovascular Cardiovascular Exam: Present: regular rate, normal rhythm, normal heart sounds. Absent: systolic murmur, diastolic murmur, rubs, gallop - GI/Abdominal GI/Abdominal exam: Present: soft, normal bowel sounds. Absent: distended, tenderness, guarding, rebound, rigid - Neurological Exam Neurological exam: Present: alert, oriented X3 - Psychiatric Psychiatric exam: Present: normal affect, normal mood - Skin Skin exam: Present: warm, dry, intact ED Medical Decision Making - Lab Data Result diagrams: 12/06/20 20:03 12/06/20 20:03 - Medical Decision Making Patient is a 30-year-old female presents emergency room complaints of nausea, vomiting, diarrhea that began 2 to 3 days ago. She states that she is unable to tolerate p.o. intake. She has associated chills. She denies any abdominal pain, cough, shortness of breath, hematochezia, melena, hematemesis, pus in the stool, back pain, urinary symptoms, abnormal vaginal discharge. She denies any sick contacts, recent travel, eating bad or spoiled foods, water from a different source, recent camping, recent antibiotics. No past medical history. No allergies to medications. Denies any past abdominal surgical history. Last menstrual cycle 11/29/2020. Vitals are normal. No abdominal tenderness on exam, no guarding, no rebound, no rigidity, normal sounds, no peritoneal signs. Labs with mild hypocalcemia, given calcium carbonate. UA without evidence of UTI. Urine is negative. Patient given medications while in the emergency department and symptoms improved and she is feeling much better ready go home, patient was able to tolerate p.o. intake without difficulty. Patient is afebrile, no tachycardia, no abdominal tenderness on exam, no leukocytosis, do not suspect acute emergent intra-abdominal pathology at this time. Symptoms most consistent with viral gastroenteritis. Discussed the importance of follow- up. Discussed return precautions. Patient given prescription for Zofran and Levsin. Advised patient Please take medication as prescribed. Increase your fluid intake. Eat a bland liquid diet and still advance her diet as tolerated. Follow-up with a primary care doctor for reexamination. Return to emergency room for any new or worsening symptoms. ED Disposition Clinical Impression: Nausea vomiting and diarrhea Disposition: TO HOME OR SELFCARE Is pt being admited?: No Does the pt Need Aspirin: No Condition: Stable Instructions: Viral Gastroenteritis, Adult Additional Instructions: Please take medication as prescribed. Increase your fluid intake. Eat a bland liquid diet and still advance her diet as tolerated. Follow-up with a primary care doctor for reexamination. Return to emergency room for any new or worsening symptoms. Prescriptions: Hyoscyamine Subl [Levsin Sl 0.125 TAB] 0.125 mg SL Q6HR PRN #7 tab PRN Reason: diarrhea/cramping Ondansetron [Zofran Odt] 4 mg PO Q8HR PRN #7 tab.rapdis PRN Reason: nausea vomiting Referrals: PRIMARY MD BRADLY [Primary Care Provider] - 2-3 Days PAUL LARKIN MD [Staff Physician] - 2-3 Days [facility] [Provider Group] - 2-3 Days Time of Disposition: 21:03 Print Language: BERMUDIAN <EVONNE KING - Last Filed: 12/08/20 11:19> ED Review of Systems ROS: Stated complaint: NAUSEA/VOMITING Other details as noted in HPI ED Course Vital Signs 12/06/20 12/06/20 12/06/20 16:24 19:54 20:54 Temperature 99.6 F Pulse Rate 92 H Respiratory 17 19 16 Rate Blood Pressure 132/93 [Right] O2 Sat by Pulse 100 Oximetry 12/06/20 21:34 Temperature 98.3 F Pulse Rate 76 Respiratory 16 Rate Blood Pressure 116/75 [Right] O2 Sat by Pulse 100 Oximetry ED Medical Decision Making - Lab Data Result diagrams: 12/06/20 20:03 12/06/20 20:03 Critical care attestation.: If time is entered above; I have spent that time in minutes in the direct care of this critically ill patient, excluding procedure time. ED Disposition Is pt being admited?: No Does the pt Need Aspirin: No
[2020-12-06 20:14] LABS: HCG Qualitative,Urine Negative (Negative)
[2020-12-06 20:19] LABS: Basophils % (Auto) 0.1 % (0.0-1.8); Eosinophils % (Auto) 0.2 % (0.0-4.3); Hematocrit 38.3 % (30.3-42.9); Hemoglobin 12.7 gm/dl (10.1-14.3); Lymphocytes # (Auto) 1.2 K/mm3 (1.2-5.4); Lymphocytes % (Auto) 15.2 % (13.4-35.0); Mean Corpuscular HGB Conc 33 % (30-34); Mean Corpuscular Volume 84 fl (79-97); Monocytes # (Auto) 0.6 K/mm3 (0.0-0.8); Monocytes % (Auto) 6.9 % (0.0-7.3); Platelet Count 271 K/mm3 (140-440); Red Blood Count 4.54 M/mm3 (3.65-5.03); Red Cell Distribution Width 15.4 % (13.2-15.2)
[2020-12-06 20:37] LABS: Alanine Aminotransferase 34 units/L (7-56); Albumin 3.4 g/dL (3.9-5); BUN/Creatinine Ratio 9; Blood Urea Nitrogen 7 mg/dL (7-17); Calcium 7.8 mg/dL (8.4-10.2); Hemolysis Index 24
[2020-12-06] MEDS ORDERED: CALCIUM CARBONATE 500 MG TAB CHEW PO ONE ×2 (20:38→21:00)
[2020-12-06 21:35] VITALS: BP 116/75
== END 2020-12-06 21:36 | disposition home or self-care (01) ==
LOC: ED 13:27
DX: R11.2 Nausea with vomiting, unspecified (principal); R19.7 Diarrhea, unspecified; Z79.1 Long term (current) use of non-steroidal anti-inflammatories (NSAID); Z79.2 Long term (current) use of antibiotics; Z79.899 Other long term (current) drug therapy
CPT/HCPCS: 36415; 80053; 81001; 81025; 83690; 85025; 96361; 96374; 99283; J2405; J7030

== ENCOUNTER 2021-08-16 14:53 | Emergency (ER) | payer MEDICARE ==
[2021-08-16] MEDS ORDERED: ACETAMINOPHEN 500 MG TAB PO ONE (21:25)
[2021-08-16] MEDS ORDERED: ONDANSETRON 4 MG ODT TAB PO ONE (21:25)
--- NOTE | 2021-08-16 21:25 | Emergency Department Report ---
ED General Adult HPI - General Chief complaint: Abdominal Pain Stated complaint: ABD PAIN Time Seen by Provider: 08/16/21 21:19 Source: patient Mode of arrival: Ambulatory Limitations: No Limitations - History of Present Illness Initial comments: Patient presents with multiple complaints. For the last week, she has had fevers and chills. She has had nausea and vomiting. She has had generalized malaise. She states that she feels weak and shaky. She has loss of her vision in both eyes. She is having a hard time seeing and reading. She just does not feel well. She also has a headache. She was using NyQuil but that has stopped. She states that she is just gotten worse. She decided to come here after work today to get seen. She did not know what to do. She did do a COVID test that was reportedly negative. Severity scale (0 -10): 9 - Related Data Previous Rx's Medication Instructions Recorded Last Taken Type Ondansetron [Zofran Odt] 4 mg PO Q8H PRN #12 tab.rapdis 03/28/18 Unknown Rx Dicyclomine [Bentyl] 40 mg PO Q8H 3 Days #9 tablet 05/31/18 Unknown Rx Promethazine [Phenergan] 25 mg PO Q6HR PRN #20 tab 05/31/18 Unknown Rx Benzonatate [Tessalon Perles] 100 mg PO Q8HR #10 capsule 10/17/18 Unknown Rx HYDROcodone/APAP 5-325 [[place] 1 each PO Q4HR PRN #12 tablet 10/17/18 Unknown Rx 5/325] Ondansetron [Zofran Odt] 4 mg PO Q8HR PRN #10 tab.rapdis 10/17/18 Unknown Rx Amoxicillin/Potassium Clav 1 each PO BID 10 Days #20 tablet 08/01/19 Unknown Rx [Augmentin 875-125 Tablet] Hyoscyamine Subl [Levsin Sl 0.125 0.125 mg SL Q6HR PRN #7 tab 12/06/20 Unknown Rx TAB] Ondansetron [Zofran Odt] 4 mg PO Q8HR PRN #7 tab.rapdis 12/06/20 Unknown Rx Butalb/Acetaminophen/Caffeine 1 cap PO Q6HR PRN #20 cap 08/17/21 Unknown Rx [Fioricet 50-300-40 mg CAP] Ibuprofen [Motrin 600 MG tab] 600 mg PO Q8H PRN #20 tablet 08/17/21 Unknown Rx Ondansetron [Zofran ODT TAB] 4 mg PO Q6HR PRN #12 tab.rapdis 08/17/21 Unknown Rx Allergies Allergy/AdvReac Type Severity Reaction Status Date / Time No Known Allergies Allergy Verified 08/16/21 15:50 ED Review of Systems ROS: Stated complaint: ABD PAIN Other details as noted in HPI ED Past Medical Hx - Past Medical History Previous Medical History?: No - Surgical History Past Surgical History?: No - Social History Smoking Status: Never Smoker Substance Use Type: None - Medications Home Medications: Home Medications Medication Instructions Recorded Confirmed Last Taken Type Ondansetron [Zofran Odt] 4 mg PO Q8H PRN #12 tab.rapdis 03/28/18 Unknown Rx Dicyclomine [Bentyl] 40 mg PO Q8H 3 Days #9 tablet 05/31/18 Unknown Rx Promethazine [Phenergan] 25 mg PO Q6HR PRN #20 tab 05/31/18 Unknown Rx Benzonatate [Tessalon Perles] 100 mg PO Q8HR #10 capsule 10/17/18 Unknown Rx HYDROcodone/APAP 5-325 [[place] 1 each PO Q4HR PRN #12 tablet 10/17/18 Unknown Rx 5/325] Ondansetron [Zofran Odt] 4 mg PO Q8HR PRN #10 tab.rapdis 10/17/18 Unknown Rx Amoxicillin/Potassium Clav 1 each PO BID 10 Days #20 tablet 08/01/19 Unknown Rx [Augmentin 875-125 Tablet] Hyoscyamine Subl [Levsin Sl 0.125 0.125 mg SL Q6HR PRN #7 tab 12/06/20 Unknown Rx TAB] Ondansetron [Zofran Odt] 4 mg PO Q8HR PRN #7 tab.rapdis 12/06/20 Unknown Rx Butalb/Acetaminophen/Caffeine 1 cap PO Q6HR PRN #20 cap 08/17/21 Unknown Rx [Fioricet 50-300-40 mg CAP] Ibuprofen [Motrin 600 MG tab] 600 mg PO Q8H PRN #20 tablet 08/17/21 Unknown Rx Ondansetron [Zofran ODT TAB] 4 mg PO Q6HR PRN #12 tab.rapdis 08/17/21 Unknown Rx ED Physical Exam - General Limitations: No Limitations ED Course Vital Signs 08/16/21 15:55 Temperature 97.6 F Pulse Rate 80 Respiratory 20 Rate Blood Pressure 153/99 [Right] O2 Sat by Pulse 100 Oximetry - Reevaluation(s) Reevaluation #1: 08/16/21 21:25 IV and labs ordered. Old records noted. Reevaluation #2: 08/17/21 00:22 Labs were noted and the patient was discharged ED Medical Decision Making - Lab Data Result diagrams: 08/16/21 21:30 08/16/21 21:30 Critical care attestation.: If time is entered above; I have spent that time in minutes in the direct care of this critically ill patient, excluding procedure time. ED Disposition Clinical Impression: Vision disturbance Nausea & vomiting Qualifiers: Vomiting type: unspecified Qualified Code(s): R11.2 - Nausea with vomiting, unspecified Acute headache Qualifiers: Headache type: unspecified Intractability: not intractable Qualified Code(s): R51.9 - Headache, unspecified Disposition: 01 HOME / SELF CARE / HOMELESS Is pt being admited?: No Condition: Stable Instructions: Abdominal Pain (ED), Form - Headache Record, Nausea and Vomiting, Adult, General Headache Without Cause, Visual Disturbances Additional Instructions: Have a bland diet. Drink plenty water. Return for problems. Follow-up with your regular doctor for recheck. If you do not have a regular doctor, follow-up with the referral physician. Prescriptions: Butalb/Acetaminophen/Caffeine [Fioricet 50-300-40 mg CAP] 1 cap PO Q6HR PRN #20 cap PRN Reason: Headache Ibuprofen [Motrin 600 MG tab] 600 mg PO Q8H PRN #20 tablet PRN Reason: Pain Ondansetron [Zofran ODT TAB] 4 mg PO Q6HR PRN #12 tab.rapdis PRN Reason: Nausea Referrals: PRIMARY CARE, [Primary Care Provider] - 3-5 Days OUMOU FARRIS MD [Staff Physician] - 3-5 Days
[2021-08-16 22:00] LABS: Hematocrit 43.7 % (30.3-42.9); Mean Corpuscular HGB Conc 32 % (30-34); Mean Corpuscular Volume 83 fl (79-97); Platelet Count 334 K/mm3 (140-440); Red Blood Count 5.28 M/mm3 (3.65-5.03); Red Cell Distribution Width 14.3 % (13.2-15.2)
[2021-08-16 22:23] LABS: Alanine Aminotransferase 71 units/L (7-56); Albumin 4.3 g/dL (3.9-5); BUN/Creatinine Ratio 13; Blood Urea Nitrogen 12 mg/dL (7-17); Calcium 9.6 mg/dL (8.4-10.2); Hemolysis Index 6
[2021-08-17 00:46] VITALS: BP 142/97
== END 2021-08-17 00:46 | disposition home or self-care (01) ==
LOC: ED 14:53
DX: H53.9 Unspecified visual disturbance (principal); R11.2 Nausea with vomiting, unspecified; R51.9 Headache, unspecified
CPT/HCPCS: 36415; 80053; 83690; 84703; 85027; 99283; J3490; Q0162

== ENCOUNTER 2021-09-12 21:42 | Emergency (ER) | payer MEDICARE ==
[2021-09-12] MEDS ORDERED: INSULIN REGULAR, HUMAN 100 UNITS/1 ML IV ONE (22:35)
[2021-09-12] MEDS ORDERED: SODIUM CHLORIDE 0.9% 1000 ML 1,000 ML IV ONE ×2 (22:35)
--- NOTE | 2021-09-12 22:38 | Emergency Department Report ---
ED Syncope HPI - General Chief Complaint: Syncope Stated Complaint: WEAKNESS Time Seen by Provider: 09/12/21 22:28 Source: patient, old records Exam Limitations: no limitations - History of Present Illness Initial Comments: Chief complaint: "I passed out. I just left [place]." HPI: This is a 31-year-old female with history of BMI 48, new diagnosis of diabetes mellitus who presents with syncopal episode today. Patient was admitted overnight and [facility]. Diagnosed with diabetes mellitus. She informed me that her blood sugar was 700. Diabetes mellitus is a new diagnosis for her. She was discharged this evening. During argument with her boyfriend, she had a syncopal episode. Prior to the fainting spell, patient felt dizzy and shaky. She denies chest pain, palpitations, shortness of breath. She has not had food since yesterday. She denies any symptoms currently. She arrived via EMS. Blood glucose 470 according to EMS report. Timing/Prior Episodes: single episode today Precipitating Factors: Positive: lightheadedness Context: standing Loss of Consciousness: brief (seconds) Current Symptoms: back to normal - Related Data Allergies/Adverse Reactions: Allergies No Known Allergies Allergy (Verified 08/16/21 15:50) Home Medications: Ambulatory Orders Ondansetron [Zofran Odt] 4 mg PO Q8H PRN #12 tab.rapdis 03/28/18 Dicyclomine [Bentyl] 40 mg PO Q8H 3 Days #9 tablet 05/31/18 Promethazine [Phenergan] 25 mg PO Q6HR PRN #20 tab 05/31/18 Benzonatate [Tessalon Perles] 100 mg PO Q8HR #10 capsule 10/17/18 HYDROcodone/APAP 5-325 [[place] 5/325] 1 each PO Q4HR PRN #12 tablet 10/17/18 Ondansetron [Zofran Odt] 4 mg PO Q8HR PRN #10 tab.rapdis 10/17/18 Amoxicillin/Potassium Clav [Augmentin 875-125 Tablet] 1 each PO BID 10 Days #20 tablet 08/01/19 Hyoscyamine Subl [Levsin Sl 0.125 TAB] 0.125 mg SL Q6HR PRN #7 tab 12/06/20 Ondansetron [Zofran Odt] 4 mg PO Q8HR PRN #7 tab.rapdis 12/06/20 Butalb/Acetaminophen/Caffeine [Fioricet 50-300-40 mg CAP] 1 cap PO Q6HR PRN #20 cap 08/17/21 Ibuprofen [Motrin 600 MG tab] 600 mg PO Q8H PRN #20 tablet 08/17/21 Ondansetron [Zofran ODT TAB] 4 mg PO Q6HR PRN #12 tab.rapdis 08/17/21 ED Review of Systems ROS: Stated complaint: WEAKNESS Other details as noted in HPI Comment: All other systems reviewed and negative Constitutional: denies: chills, fever, malaise Respiratory: denies: cough, shortness of breath Cardiovascular: syncope. denies: chest pain, palpitations Gastrointestinal: denies: abdominal pain, nausea, vomiting ED Past Medical Hx - Past Medical History Previous Medical History?: Yes Hx Diabetes: Yes (NEW [place]NSET) - Surgical History Past Surgical History?: No - Family History Family history: diabetes - Social History Smoking Status: Never Smoker Substance Use Type: None - Medications Home Medications: Home Medications Medication Instructions Recorded Confirmed Last Taken Type Ondansetron [Zofran Odt] 4 mg PO Q8H PRN #12 tab.rapdis 03/28/18 Unknown Rx Dicyclomine [Bentyl] 40 mg PO Q8H 3 Days #9 tablet 05/31/18 Unknown Rx Promethazine [Phenergan] 25 mg PO Q6HR PRN #20 tab 05/31/18 Unknown Rx Benzonatate [Tessalon Perles] 100 mg PO Q8HR #10 capsule 10/17/18 Unknown Rx HYDROcodone/APAP 5-325 [[place] 1 each PO Q4HR PRN #12 tablet 10/17/18 Unknown Rx 5/325] Ondansetron [Zofran Odt] 4 mg PO Q8HR PRN #10 tab.rapdis 10/17/18 Unknown Rx Amoxicillin/Potassium Clav 1 each PO BID 10 Days #20 tablet 08/01/19 Unknown Rx [Augmentin 875-125 Tablet] Hyoscyamine Subl [Levsin Sl 0.125 0.125 mg SL Q6HR PRN #7 tab 12/06/20 Unknown Rx TAB] Ondansetron [Zofran Odt] 4 mg PO Q8HR PRN #7 tab.rapdis 12/06/20 Unknown Rx Butalb/Acetaminophen/Caffeine 1 cap PO Q6HR PRN #20 cap 08/17/21 Unknown Rx [Fioricet 50-300-40 mg CAP] Ibuprofen [Motrin 600 MG tab] 600 mg PO Q8H PRN #20 tablet 08/17/21 Unknown Rx Ondansetron [Zofran ODT TAB] 4 mg PO Q6HR PRN #12 tab.rapdis 08/17/21 Unknown Rx ED Physical Exam - General Limitations: No Limitations General appearance: alert, in no apparent distress - Head Head exam: Present: atraumatic, normocephalic - Eye Eye exam: Present: normal appearance - ENT ENT exam: Present: mucous membranes moist - Neck Neck exam: Present: normal inspection, full ROM - Respiratory Respiratory exam: Present: normal lung sounds bilaterally. Absent: respiratory distress, wheezes, rales, rhonchi - Cardiovascular Cardiovascular Exam: Present: regular rate, normal rhythm, normal heart sounds. Absent: systolic murmur, diastolic murmur, rubs, gallop - GI/Abdominal GI/Abdominal exam: Present: soft, normal bowel sounds. Absent: distended, tenderness, guarding, rebound - Extremities Exam Extremities exam: Present: normal inspection - Back Exam Back exam: Present: normal inspection - Neurological Exam Neurological exam: Present: alert, oriented X3 - Psychiatric Psychiatric exam: Present: normal affect, normal mood - Skin Skin exam: Present: warm, dry, intact, normal color. Absent: rash ED Medical Decision Making - Lab Data Result diagrams: 09/12/21 22:50 09/12/21 22:50 - Medical Decision Making 1. Vasovagal syncope: PERC negative for PE. Low risk for arrhythmia and structural heart disease. 2. Acute hyperglycemia due to new diagnosis of diabetes mellitus. Repeat blood sugar 269. Patient without evidence of DKA. Recommended beginning oral medication provided at outside hospital. Patient given referral to our internal medicine physician. Chemistry reveals pseudohyponatremia hCG negative anion gap 18. Bicarbonate 23 In the emergency department patient received 2 L normal saline IV fluid. Regular insulin 10 units. Recommended eating regular meals. Critical care attestation.: If time is entered above; I have spent that time in minutes in the direct care of this critically ill patient, excluding procedure time. ED Disposition Clinical Impression: Vasovagal syncope, Acute hyperglycemia, Diabetes mellitus Disposition: 01 HOME / SELF CARE / HOMELESS Is pt being admited?: No Does the pt Need Aspirin: No Condition: Stable Instructions: Syncope (ED), Diabetes Mellitus Type 2 in Adults (ED), Type 2 Diabetes Mellitus, Diagnosis, Adult Referrals: PAUL LARKIN MD [Staff Physician] - 3-5 Days
[2021-09-12 23:36] LABS: BUN/Creatinine Ratio 12; Blood Urea Nitrogen 12 mg/dL (7-17); Hemolysis Index 0
[2021-09-13 00:24] LABS: Basophils % (Auto) 0.1 % (0.0-1.8); Eosinophils % (Auto) 0.4 % (0.0-4.3); Hemoglobin 12.3 gm/dl (10.1-14.3); Lymphocytes # (Auto) 1.7 K/mm3 (1.2-5.4); Lymphocytes % (Auto) 19.1 % (13.4-35.0); Mean Corpuscular HGB Conc 32 % (30-34); Mean Corpuscular Volume 84 fl (79-97); Monocytes # (Auto) 0.6 K/mm3 (0.0-0.8); Monocytes % (Auto) 7.4 % (0.0-7.3); Platelet Count 292 K/mm3 (140-440); Red Cell Distribution Width 14.4 % (13.2-15.2)
[2021-09-13] MEDS ORDERED: ACETAMINOPHEN 500 MG TAB PO ONE (02:11)
[2021-09-13 02:23] VITALS: BP 123/76
== END 2021-09-13 02:26 | disposition home or self-care (01) ==
LOC: ED 21:42
DX: E11.65 Type 2 diabetes mellitus with hyperglycemia (principal); R55 Syncope and collapse
CPT/HCPCS: 36415; 80048; 82805; 82962; 84703; 85025; 96361; 96374; 99284; J7030; Q0162; Q9967; J1815